=== PATIENT | female | born 1970 | race Caucasian/White ===

== ENCOUNTER 2017-11-22 12:58 | Emergency (ER) | payer MEDICAID ==
[~2017-11-22] VITALS: Ht 152.4 cm; Wt 86.2 kg
--- NOTE | ~2017-11-22 | EKG ---
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 : 1970 Requested By: Gilbert Horvath Order Number: [id number] MD: Philipp Watters Measurements Intervals [place] Rate: 96 P: 16 WI: 125 QRS: -1 QRSD: 158 T: -5 QT: 351 QTc: 444 Interpretive Statements Sinus rhythm Nonspecific intraventricular conduction delay Compared to ECG 12/17/2011 18:45:56 Intraventricular conduction delay now present Short WI interval no longer present Electronically Signed On 11-22-2017 17:18:42 CDT by Philipp Watters [email or web address] <ELECTRONICALLY SIGNED> By: Philipp Watters MD 11/22/17 [id number] Philipp Watters MD /EPI
[~2017-11-22 12:58] MED LIST: ABILIFY PO; CATAPRES-TTS 10.1 MG TD; CLONIDINE0.1 PO; DESYREL100 MG PO; DISCONTINUE:; HYDROCODON-ACE1 EAC5 PO; KEPPRA PO; LISINOPRIL2.5 MG PO; METHADONE HCL 110 M1 PO; METHADOSE10 M1 PO; METHADOSE10 MG PO; MS CONTIN15 MG PO; NAPROSYN500 MG PO; NEXIUM40 MG PO; NORCO 5-325 TA1 EACH PO; SEROQUEL 100 M100 MG PO; TYLENOL EX-STR500 M2 PO; XANAX 0.5 MG0.5 M1 PO; XANAX 0.5 MG0.5 MG PO; XANAX XR1 MG PO; ZANAFLEX4 M1 PO; ZOLOFT100 MG PO
[2017-11-22] MEDS ORDERED: CLONIDINE HCL0.1 MG PO (13:30)
[2017-11-22] MEDS ORDERED: ZANAFLEX4 MG PO (13:30)
[2017-11-22] MEDS ORDERED: NORCO 10-325 T1 EACH PO (13:30)
[2017-11-22] MEDS ORDERED: METFORMIN HCL500 MG PO (13:32)
[2017-11-22] MEDS ORDERED: CRESTOR5 MG PO (13:32)
[2017-11-22] MEDS ORDERED: ARIPIPRAZOLE15 MG PO (13:32)
[2017-11-22] MEDS ORDERED: QUETIAPINE FUM400 MG PO (13:33)
[2017-11-22] MEDS ORDERED: RANITIDINE HCL300 MG PO (13:33)
[2017-11-22 14:25] LABS: ABSOLUTE NEUTROPHILS 10.8 thou/uL (1.4-8.2); BASOPHILS 0.4 % (0.0-2.0); EOSINOPHILS 0.2 % (0.0-3.0); HEMATOCRIT 42.4 % (37.0-47.0); HEMOGLOBIN 13.5 gm/dL (12.0-15.0); LYMPHOCYTES 20.8 % (24.0-44.0); MCH 27.4 pg (26.0-34.0); MCHC 31.8 g/dL (28.0-37.0); MONOCYTES 8.8 % (1.0-8.0); PLATELET COUNT 333 thou/uL (150-400); POLYS 69.8 % (36.0-66.0); RBC 4.94 mil/uL (4.20-5.00); RDW 14.8 % (10.5-14.5); WBC 15.5 thou/uL (4.0-11.0)
[2017-11-22 14:28] LABS: CALCIUM 9.3 mg/dL (8.5-10.1); CREATININE 1.1 mg/dL (0.6-1.0); POTASSIUM 4.4 mmol/L (3.5-5.1)
== END 2017-11-22 15:25 | disposition home or self-care (01) ==
LOC: ER 12:58
PROVIDERS: Nurse Practitioner
DX: T18.128A Food in esophagus causing other injury, initial encounter (principal); K21.9 Gastro-esophageal reflux disease without esophagitis; Z90.49 Acquired absence of other specified parts of digestive tract; Z88.5 Allergy status to narcotic agent; Z87.891 Personal history of nicotine dependence; X58.XXXA Exposure to other specified factors, initial encounter; Y93.89 Activity, other specified; Y92.89 Other specified places as the place of occurrence of the external cause; Y99.8 Other external cause status
CPT/HCPCS: 62110; 62900; 70005